=== PATIENT | female | born 1965 | race Caucasian/White ===

== ENCOUNTER 2021-04-04 12:29 | Outpatient (REF) | payer OTHER, SELFPAY ==
[2021-04-04 13:22] LABS: Hematocrit 40.1 % (37-47); Hemoglobin 13.6 g/dl (12.0-16.0); Mean Corpuscular HGB Conc 33.9 g/dl (31.0-35.0); Mean Corpuscular Hemoglobin 30.6 pg (27.0-33.0); Mean Corpuscular Volume 90.3 fL (80-98); Mean Platelet Volume 12.3 fL (9.4-12.3); Platelet Count 231 X10*3/uL (160-400); Red Blood Count 4.44 X10*6/uL (4.20-5.50); Red Cell Distribution Width 12.2 % (11.0-16.0); White Blood Count 5.7 X10*3/uL (4.8-10.8)
[2021-04-04 13:43] LABS: Estimated Average Glucose 114 mg/dL; Hemoglobin A1c % 5.6 %
[2021-04-04 14:10] LABS: Creatinine Urine 29.92 mg/dL; Microalbumin Urine < 5.0 mg/L
[2021-04-04 14:12] LABS: Alanine Aminotransferase 14 U/L (0-31); Albumin Level 4.2 g/dL (3.5-5.0); Alkaline Phosphatase 75 U/L (39-117); Anion Gap 13 (12-20); Aspartate Amino Transferase 15 U/L (5-31); Bilirubin Total 0.2 mg/dL (0.0-1.0); Blood Urea Nitrogen 14 mg/dL (9-16); Calcium 9.3 mg/dL (8.4-10.2); Carbon Dioxide 27 mmol/L (22-29); Chloride 106 mmol/L (96-108); Cholesterol 232 mg/dL; Estimated Glomerular Filt Rate > 60; Glucose Fasting 110 mg/dL (60-99); HDL Cholesterol 38 mg/dL; LDL Cholesterol Calculated 125 mg/dl; Potassium 4.4 mmol/L (3.3-5.1); Sodium 142 mmol/L (135-145); Total Protein 7.3 g/dL (6.5-8.0); Triglycerides 346 mg/dL
[2021-04-04 14:32] LABS: TSH reflex Free T4 1.16 uIU/mL (0.32-4.0)
== END 2021-04-04 12:30 | disposition home or self-care (01) ==
LOC: HO.LAB 12:29
PROVIDERS: Visit Provider Internal Medicine
DX: Z00.00 Encounter for general adult medical examination without abnormal findings (principal); E78.5 Hyperlipidemia, unspecified; M19.90 Unspecified osteoarthritis, unspecified site; R73.9 Hyperglycemia, unspecified
CPT/HCPCS: 36415; 80053; 80061; 82043; 83036; 84443; 85027

== ENCOUNTER 2022-09-04 15:34 | Emergency (ER) | payer OTHER, SELFPAY ==
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
[2022-09-04 16:34] VITALS: BP 192/83; PULSE 105; RESP 20; TEMP 36.9; O2SAT 100; BMI 35.4
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
[2022-09-04 19:05] VITALS: BP 198/80; PULSE 91; RESP 16; TEMP 36.8; O2SAT 99
[2022-09-04] MEDS: Ketorolac Tromethamine 30 MG/ML VIAL IM (19:34)
[2022-09-04] MEDS: Lidocaine 4 % Patch ADH..PATCH 1 PATCH TRANSDERMA (19:36)
[2022-09-04 19:55] VITALS: BP 189/89; PULSE 84; RESP 16; O2SAT 98
--- NOTE | 2022-09-04 20:01 | PC.NURSE ---
BP reassessed and found to be lower than previous readings but still elevated. Pt denied any dizziness or headache at this time. Pt reported decreased right flank pain. Provider made aware of pt condition. Plan to discharge home with pain meds. Pt advised to monitor BP this week at home.
== END 2022-09-04 20:12 | disposition home or self-care (01) ==
PROVIDERS: Emergency Provider Internal Medicine; PCP Internal Medicine
DX: S20.211A Contusion of right front wall of thorax, initial encounter (principal); V43.52XA Car driver injured in collision with other type car in traffic accident, initial encounter; I10 Essential (primary) hypertension; R00.0 Tachycardia, unspecified; Y93.89 Activity, other specified; Y92.414 Local residential or business street as the place of occurrence of the external cause; Y99.9 Unspecified external cause status
CPT/HCPCS: 71101; 96372; 99284; J1885

== ENCOUNTER 2022-09-12 11:28 | Outpatient (REF) | payer OTHER, SELFPAY ==
[2022-09-12 13:50] LABS: Appearance Urine Clear; Color Urine Dark Yellow; Glucose Urine UA Negative (Negative); Leukocyte Esterase Urine Small (1+) (Negative); Nitrite Urine Negative (Negative); Specific Gravity - Urine 1.025 (1.005-1.025); UMIC TRIGGER UA YES; Urine Blood Negative (Negative); Urine Ketones Negative (Negative); Urine Protein Negative (Neg-Trace)
[2022-09-12 13:58] LABS: Bacteria Urine None Seen (None Seen); Hyaline Casts Urine 0-2 /LPF (0-2); RBC Urine 0-2 /HPF (0-2); Squamous Epithelial Cell Urine 0-2 /HPF (0-2); WBC Urine 0-5 /HPF (0-5)
== END 2022-09-12 11:29 | disposition home or self-care (01) ==
LOC: HO.HMGCLDS 11:28
PROVIDERS: PCP Internal Medicine; Visit Provider Internal Medicine
DX: Z00.00 Encounter for general adult medical examination without abnormal findings (principal)
CPT/HCPCS: 81001

== ENCOUNTER 2023-05-11 13:26 | Outpatient (AMB) | payer OTHER, SELFPAY ==
--- NOTE | 2023-05-11 13:55 | A.OFFPC_ITS ---
Vital Signs 05/11/23 13:56 Height 5 ft 3 in Weight 200 lb BMI 35.4 BP 130/80 Blood Pressure Location Rt brachial Position Sitting Pulse 89 Pulse Source Pulse Oximeter Pulse Oximetry (%) 100 Oxygen Delivery Method Room Air Intake Visit Reasons: Follow up Intake Note: pt is here for a follow up Allergies amoxicillin Allergy (Unknown, Verified 05/11/23 13:57) yeast infection Tobacco use date assessed: 05/11/23 HPI Follow up HPI Details Pt c/o flashing lights in L eye on and off for 1 month. Pt denies KUHN, change in vision, nausea vomiting, eye pain. Pt lost her job yesterday due to company changes. She follows low cholesterol diet for hyperlipid. [facility] Medical History Mammogram normal Normal Pap smear Normal colonoscopy Hyperglycemia Hyperlipidemia Osteoarthritis Annual physical exam Social History Housing: House Patient Tobacco Use Status: Never used Tobacco e-Cigarette/Vaping Use: Never Used Current occupational status: employed Cognitive needs: No Hearing needs: No Vision needs: No Questionnaire Thrive Questionnaire Date Thrive assessed: 03/29/22 JOSH-7 AMB Questionnaire JOSH-7 Date JOSH - 7 assessed: 03/29/22 Source: Developed by Drs. Myles Castellano, Rosaura Awad, Jorje Barclay and colleagues, with an educational elise from [employer]. Review of Systems Const All systems reviewed & are unremarkable except as noted in HPI and below Reports no additional complaints Eyes Reports no additional complaints ENT Reports no additional complaints Card Reports no additional complaints Resp Reports no additional complaints GI Reports no additional complaints Reports no additional complaints Physical exam (Primary Care) Vital Signs: Last Vital Signs Pulse 89 05/11/23 13:56 BP 160/88 H 05/11/23 13:56 Pulse Ox 100 05/11/23 13:56 Oxygen Delivery Method Room Air 05/11/23 13:56 BMI result Body Mass Index 35.4 Tobacco/Smoking Status: Tobacco use Status Tobacco use date assessed 05/11/23 05/11/23 14:00 Patient Tobacco Use Status Never used Tobacco 05/11/23 14:00 e-Cigarette/Vaping Use Never Used 05/11/23 14:00 Thrive Assessment: Date of Thrive Assessment Date Thrive assessed 03/29/22 05/11/23 14:00 Const General: no acute distress HENMT Ears: hearing grossly normal bilaterally Mouth: Normal oral and palatal mucosa present Eyes General: appearance normal, both eyes and all related structures Visual Castle: normal visual castle by confrontation Eyelids: Yes eyelids normal Pupils: Equal, round and reactive pupils present EOM: EOMs intact bilaterally Direct Ophthalmoscopy: no papilledema and fundi normal bilaterally Resp Effort & Inspection: normal respiratory effort Auscultation: clear to auscultation bilaterally Cardio Rhythm: regular rhythm Heart sounds: S1 normal heart sound present and S2 normal heart sound present GI Inspection: Yes normal to inspection Palpation (GI): Soft to palpation Percussion: Yes normal to percussion Neuro Cranial nerves: Yes Equal, round and reactive pupils present Assessment and Plan Assessment & Plan (1) Hyperlipidemia: Code(s): E78.5 - Hyperlipidemia, unspecified Plan: cont low cholesterol diet (2) Osteoarthritis: Comment: knees Code(s): M19.90 - Unspecified osteoarthritis, unspecified site (3) Vision changes: Code(s): H53.9 - Unspecified visual disturbance Plan: 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 Coding Level of Care Code Est Pt Level 3 (36797) Diagnoses Hyperlipidemia E78.5 Osteoarthritis M19.90 Vision changes H53.9 Elevated blood pressure reading R03.0
[2023-05-11 13:56] VITALS: BP 130/80; PULSE 89; O2SAT 100; BMI 35.4
== END 2023-05-11 15:43 | disposition home or self-care (01) ==
PROVIDERS: PCP Internal Medicine; Visit Provider Internal Medicine
DX: E78.5 Hyperlipidemia, unspecified (principal); M19.90 Unspecified osteoarthritis, unspecified site; H53.9 Unspecified visual disturbance; R03.0 Elevated blood-pressure reading, without diagnosis of hypertension
CPT/HCPCS: 99213

== ENCOUNTER 2023-06-18 12:45 | Outpatient (AMB) | payer BC, SELFPAY ==
[2023-06-18 12:47] VITALS: BP 126/78; PULSE 100; TEMP 36.7; O2SAT 96; BMI 36.7
--- NOTE | 2023-06-18 12:47 | A.OFFPC_ITS ---
Vital Signs 06/18/23 12:47 Height 5 ft 3 in Weight 207 lb BMI 36.7 BP 126/78 Blood Pressure Location Lt brachial Position Sitting Pulse 100 Pulse Source Pulse Oximeter Temp 98.1 F Temp Source Oral Pulse Oximetry (%) 96 Oxygen Delivery Method Room Air Intake Visit Reasons: congestion,sore throat, discharge from eye Intake Note: Pt is here today for a sick visit. Pt c/o congestion, cough, sore throat and discharge from both eyes for a week now. Allergies amoxicillin Allergy (Unknown, Verified 06/18/23 12:47) yeast infection Tobacco use date assessed: 06/18/23 Dental Screening Dental Screen Date: 06/18/23 Did you have a dental visit in the last 12 months?: Yes Did you have a dental problem in the last 6 months where you did not have access to dental care?: No Was dental information given to patient?: Patient has dentist HPI congestion,sore throat, discharge from eye HPI Details Pt c/o KUHN, cough, sore throat, congestion, chills, fever for 1 week. [facility] Medical History Mammogram normal Normal Pap smear Normal colonoscopy Hyperglycemia Hyperlipidemia Osteoarthritis Annual physical exam Social History Housing: House Patient Tobacco Use Status: Never used Tobacco e-Cigarette/Vaping Use: Never Used Current occupational status: employed Cognitive needs: No Hearing needs: No Vision needs: No Questionnaire PHQ-9 Over the last 2 weeks, how often have you been bothered by any of the following problems? 1. Little interest or pleasure in doing things: not at all 2. Feeling down, depressed, or hopeless: not at all 3. Trouble falling or staying asleep, or sleeping too much: not at all 4. Feeling tired or having little energy: not at all 5. Poor appetite or overeating: not at all 6. Feeling bad about yourself - or that you are a failure or have let yourself or your family down: not at all 7. Trouble concentrating on things, such as reading the newspaper or watching television: not at all 8. Moving or speaking so slowly that other people could have noticed. Or the opposite - being so fidgety or restless that you have been moving around a lot more than usual: not at all 9. Thoughts that you would be better off or of hurting yourself in some way: not at all Total score: 0 Depression Screening Interpretation: Negative Depression Screening Done: Yes Source: Developed by Drs. Myles Castellano, Rosaura Awad, Jorje euceda nd colleagues, with an educational elise from [employer]. Thrive Questionnaire Date Thrive assessed: 06/18/23 I am a: Patient What is your living situation today?: I have a steady place to live Within the past 12 months, did the food you bought not last and you didn't have the money to get more?: Never true Within the past 12 months, did you worry whether your food would run out before you got money to buy more?: Never true Do you have trouble paying for medicines?: No Do you have trouble getting transportation to medical appointments?: No Do you have trouble paying your heating and electricity bill?: No Do you have trouble taking care of your child, family member or friend?: No Do you have trouble with day-to-day activities such as bathing, preparing meals, shopping, managing finances, etc.?: No Are you currently unemployed and looking for a job?: No Are you interested in more education?: No Please select the resources that you would like help with: None JOSH-7 AMB Questionnaire JOSH-7 Date JOSH - 7 assessed: 06/18/23 Feeling nervous, anxious, or on edge: 0 = Not at all Not being able to stop or control worryin = Not at all Worrying too much about different things: 0 = Not at all Trouble relaxin = Not at all Being so restless that it is hard to sit still: 0 = Not at all Becoming easily annoyed or irritable: 0 = Not at all Feeling afraid as if something awful might happen: 0 = Not at all Total JOSH-7 score (0-4 normal; 5-9 mild; 10-14 moderate; 15-21 severe): 0 Source: Developed by Drs. Myles Castellano, Jorje Pepper nd colleagues, with an educational elise from [employer]. Review of Systems Const All systems reviewed & are unremarkable except as noted in HPI and below Reports no additional complaints Eyes Reports no additional complaints ENT Reports no additional complaints Card Reports no additional complaints Resp Reports no additional complaints Physical exam (Primary Care) Vital Signs: Last Vital Signs Temp 98.1 F 06/18/23 12:47 Pulse 100 06/18/23 12:47 BP 126/78 06/18/23 12:47 Pulse Ox 96 06/18/23 12:47 Oxygen Delivery Method Room Air 06/18/23 12:47 BMI result Body Mass Index 36.7 Tobacco/Smoking Status: Tobacco use Status Tobacco use date assessed 06/18/23 06/18/23 12:48 Patient Tobacco Use Status Never used Tobacco 06/18/23 12:48 e-Cigarette/Vaping Use Never Used 06/18/23 12:48 PHQ-9: PHQ-9 Score PHQ-9: Total score 0 06/18/23 13:18 Depression Screening Interpretation: Negative Thrive Assessment: Date of Thrive Assessment Date Thrive assessed 06/18/23 06/18/23 12:48 Const General: no acute distress HENMT Face and sinus: Yes normal facial exam Mouth: Normal oral and palatal mucosa present Throat: Yes posterior oropharynx normal Neck Neck: Yes no lymphadenopathy and Yes supple Resp Effort & Inspection: normal respiratory effort Auscultation: clear to auscultation bilaterally Cardio Rhythm: regular rhythm Heart sounds: S1 normal heart sound present and S2 normal heart sound present Assessment and Plan Assessment & Plan (1) URI (upper respiratory infection): Code(s): J06.9 - Acute upper respiratory infection, unspecified Plan: SUPPORTIVE CARE DISCUSSED WITH THE PATIENT Coding Level of Care Code Est Pt Level 3 (91746) Diagnoses URI (upper respiratory infection) J06.9
== END 2023-06-18 13:51 | disposition home or self-care (01) ==
PROVIDERS: PCP Internal Medicine; Visit Provider Internal Medicine
DX: J06.9 Acute upper respiratory infection, unspecified (principal)
CPT/HCPCS: 99213

== ENCOUNTER 2023-07-09 15:50 | Outpatient (REF) | payer BC, SELFPAY ==
--- NOTE | ~2023-07-09 | XR_ITS ---
EXAMINATION: XR RIBS, LEFT CLINICAL INFORMATION: Pleurodynia COMPARISON: Chest radiograph from 09/04/2022 TECHNIQUE: AP chest and 3 views of left rib cage FINDINGS: There is low lung volume bilaterally with atelectasis at the left lung base. There is no pleural effusion or evidence of rib fractures. XR/XR ribs LT min 3V w CXR1V IMPRESSION: Low lung colon with left atelectasis.
== END 2023-07-09 15:51 | disposition home or self-care (01) ==
LOC: HO.XRAY 15:50
PROVIDERS: PCP Internal Medicine; Visit Provider Internal Medicine
DX: R07.81 Pleurodynia (principal)
CPT/HCPCS: 71101

== ENCOUNTER 2023-09-25 14:21 | Outpatient (AMB) | payer BC, SELFPAY ==
[2023-09-25 14:34] VITALS: BP 136/74; PULSE 110; O2SAT 98; BMI 36.1
--- NOTE | 2023-09-25 14:34 | MHC.PC.OV ---
Vital Signs 09/25/23 14:34 Height 5 ft 3 in Weight 204 lb BMI 36.1 BP 136/74 Blood Pressure Location Lt brachial Position Sitting Pulse 110 H Pulse Source Pulse Oximeter Pulse Oximetry (%) 98 Oxygen Delivery Method Room Air Intake Visit Reasons: Cough, chills Intake Note: Pt is here today for a sick visit. Pt c/o cough, chills and crackling sound in her chest. Allergies amoxicillin Allergy (Unknown, Verified 09/25/23 14:42) yeast infection Medication List - Last Reconciled 09/25/23 by Marilu Ryan MD No Known Home Meds Tobacco use date assessed: 09/25/23 Dental Screening Dental Screen Date: 09/25/23 Did you have a dental visit in the last 12 months?: Yes Did you have a dental problem in the last 6 months where you did not have access to dental care?: No Was dental information given to patient?: Patient has dentist HPI Cough, chills HPI Details Pt c/o dry cough, chills, body aches for 2 days. She denies shortness or breath pleurisy sore throat nasal congestion or GI complaints. [facility]END[facility] S[facility] TO [facility] Medical History Mammogram normal Normal Pap smear Normal colonoscopy Hyperglycemia Hyperlipidemia Osteoarthritis Annual physical exam Social History Housing: House Patient Tobacco Use Status: Never used Tobacco e-Cigarette/Vaping Use: Never Used Current occupational status: employed Cognitive needs: No Hearing needs: No Vision needs: No Questionnaire Thrive Questionnaire Date Thrive assessed: 06/18/23 AUDIT C Alcohol Use Questionnaire (AUDIT-C) 1. How often do you have a drink containing alcohol?: Never 3. How often do you have six or more drinks on one occasion?: Never Total Score: 0 JOSH-7 AMB Questionnaire JOSH-7 Date JOSH - 7 assessed: 06/18/23 Source: Developed by Drs. Myles Castellano, Rosaura Awad, Jorje Barclay and colleagues, with an educational elise from [employer]. Review of Systems Const All systems reviewed & are unremarkable except as noted in HPI and below Reports no additional complaints Eyes Reports no additional complaints ENT Reports no additional complaints Resp Reports no additional complaints GI Reports no additional complaints Reports no additional complaints Physical exam (Primary Care) Vital Signs: Last Vital Signs Pulse 110 H 09/25/23 14:34 BP 136/74 09/25/23 14:34 Pulse Ox 98 09/25/23 14:34 Oxygen Delivery Method Room Air 09/25/23 14:34 BMI result Body Mass Index 36.1 Tobacco/Smoking Status: Tobacco use Status Tobacco use date assessed 09/25/23 09/25/23 14:45 Patient Tobacco Use Status Never used Tobacco 09/25/23 14:45 e-Cigarette/Vaping Use Never Used 09/25/23 14:36 Thrive Assessment: Date of Thrive Assessment Date Thrive assessed 06/18/23 09/25/23 14:36 Const General: no acute distress HENMT Head: Yes normal to inspection Ears: hearing grossly normal bilaterally Face and sinus: Yes normal facial exam Mouth: Normal oral and palatal mucosa present Throat: Yes posterior oropharynx normal Eyes General: appearance normal, both eyes and all related structures Neck Neck: Yes no lymphadenopathy and Yes supple Resp Effort & Inspection: normal respiratory effort Auscultation: clear to auscultation bilaterally Cardio Rhythm: regular rhythm Heart sounds: S1 normal heart sound present and S2 normal heart sound present Assessment and Plan Assessment & Plan (1) URI (upper respiratory infection): Code(s): J06.9 - Acute upper respiratory infection, unspecified Plan: Check respiratory nasal swab, supportive care discussed with the patient. Orders: Orders SARS-CoV2/FLU/RSV Today R09.89 - Other specified symptoms and signs involving the circulatory and respiratory systems Referrals Cologuard Test Z12.11 - Encounter for screening for malignant neoplasm of colon, Z12.12 - Encounter for screening for malignant neoplasm of rectum Medications: New benzonatate 100 mg PO TID 30 caps 0RF Coding Level of Care Code Est Pt Level 3 (07103) Diagnoses URI (upper respiratory infection) J06.9
== END 2023-09-25 15:10 | disposition home or self-care (01) ==
PROVIDERS: PCP Internal Medicine; Visit Provider Internal Medicine
DX: J06.9 Acute upper respiratory infection, unspecified (principal)
CPT/HCPCS: 99213

== ENCOUNTER 2023-09-25 15:01 | Outpatient (REF) | payer BC, SELFPAY ==
[2023-09-25 17:59] LABS: Influenza A PCR NEGATIVE (Negative); Influenza B PCR NEGATIVE (Negative); Resp Syncy Virus RNA Qual PCR NEGATIVE (Negative); SARS COV2 PCR INHOUSE NEGATIVE (Negative)
== END 2023-09-25 15:02 | disposition home or self-care (01) ==
LOC: HO.LAB 15:01
PROVIDERS: Visit Provider Internal Medicine
DX: Z11.52 Encounter for screening for COVID-19 (principal); R09.89 Other specified symptoms and signs involving the circulatory and respiratory systems
CPT/HCPCS: 0241U

== ENCOUNTER 2024-05-01 13:25 | Outpatient (AMB) | payer BC, SELFPAY ==
--- NOTE | 2024-05-01 13:28 | MHC.PC.OV ---
Vital Signs 05/01/24 13:30 Height 5 ft 3 in Weight 200 lb BMI 35.4 BP 130/78 Blood Pressure Location Lt brachial Position Sitting Pulse 92 Pulse Source Pulse Oximeter Pulse Oximetry (%) 97 Oxygen Delivery Method Room Air Intake Visit Reasons: Follow up Intake Note: Pt is here today for a follow up visit. Allergies amoxicillin Allergy (Unknown, Verified 05/01/24 13:31) yeast infection Medication List - Last Reconciled 05/01/24 by Marilu Ryan MD No Known Home Meds Tobacco use date assessed: 05/01/24 Dental Screening Dental Screen Date: 05/01/24 Did you have a dental visit in the last 12 months?: Yes Did you have a dental problem in the last 6 months where you did not have access to dental care?: No Was dental information given to patient?: Patient has dentist HPI Follow up HPI Details Patient presents for the follow-up. She complains of bilateral ankle pain and stiffness worse when walking longer distance. She had ultrasound in [place] was found to have inflammation but blood work including rheumatoid factor sed rate uric acid and CBC were normal. Patient denies joint swelling but reports chronic lower extremity edema worse at the end of the day. [facility] Medical History (Updated 05/01/24 @ 15:05 by Marilu Ryan MD) Mammogram normal Normal Pap smear Normal colonoscopy Hyperglycemia Hyperlipidemia Osteoarthritis Annual physical exam Social History Housing: House Patient Tobacco Use Status: Never used Tobacco e-Cigarette/Vaping Use: Never Used service: No Current occupational status: employed Cognitive needs: No Hearing needs: No Vision needs: No Questionnaire PHQ-9 Over the last 2 weeks, how often have you been bothered by any of the following problems? 1. Little interest or pleasure in doing things: not at all 2. Feeling down, depressed, or hopeless: not at all 3. Trouble falling or staying asleep, or sleeping too much: not at all 4. Feeling tired or having little energy: not at all 5. Poor appetite or overeating: not at all 6. Feeling bad about yourself - or that you are a failure or have let yourself or your family down: not at all 7. Trouble concentrating on things, such as reading the newspaper or watching television: not at all 8. Moving or speaking so slowly that other people could have noticed. Or the opposite - being so fidgety or restless that you have been moving around a lot more than usual: not at all 9. Thoughts that you would be better off or of hurting yourself in some way: not at all Total score: 0 Depression Screening Interpretation: Negative Depression Screening Done: Yes 31643 - PHQ-9 Billing: Yes Source: Developed by Drs. Myles Castellano, Rosaura Awad, Jorje Barclay and colleagues, with an educational elise from [employer]. Thrive Questionnaire Date Thrive assessed: 05/01/24 I am a: Patient What is your living situation today?: I have a steady place to live Within the past 12 months, did the food you bought not last and you didn't have the money to get more?: Never true Within the past 12 months, did you worry whether your food would run out before you got money to buy more?: Never true Do you have trouble paying for medicines?: No Do you have trouble getting transportation to medical appointments?: No Do you have trouble paying your heating and electricity bill?: No Do you have trouble taking care of your child, family member or friend?: No Do you have trouble with day-to-day activities such as bathing, preparing meals, shopping, managing finances, etc.?: No Are you currently unemployed and looking for a job?: No Are you interested in more education?: No Please select the resources that you would like help with: None THRIVE Score: 0 AUDIT C Alcohol Use Questionnaire (AUDIT-C) 1. How often do you have a drink containing alcohol?: Never 3. How often do you have six or more drinks on one occasion?: Never Total Score: 0 JOSH-7 AMB Questionnaire JOSH-7 Date JOSH - 7 assessed: 05/01/24 Feeling nervous, anxious, or on edge: 0 = Not at all Not being able to stop or control worryin = Not at all Worrying too much about different things: 0 = Not at all Trouble relaxin = Not at all Being so restless that it is hard to sit still: 0 = Not at all Becoming easily annoyed or irritable: 0 = Not at all Feeling afraid as if something awful might happen: 0 = Not at all Total JOSH-7 score (0-4 normal; 5-9 mild; 10-14 moderate; 15-21 severe): 0 Source: Developed by Drs. Myles Castellano, Rosaura Awad, Jorje Barclay and colleagues, with an educational elise from [employer]. JOSH-7 Assessment Billing JOSH-7 Assessment Tool: JOSH-7 Assessment 17605 Review of Systems Const All systems reviewed & are unremarkable except as noted in HPI and below ENT Reports no additional complaints Card Reports no additional complaints Resp Reports no additional complaints GI Reports no additional complaints Reports no additional complaints Physical exam (Primary Care) Vital Signs: Last Vital Signs Pulse 92 05/01/24 13:30 BP 130/78 05/01/24 13:30 Pulse Ox 97 05/01/24 13:30 Oxygen Delivery Method Room Air 05/01/24 13:30 BMI result Body Mass Index 35.4 Tobacco/Smoking Status: Tobacco use Status Tobacco use date assessed 05/01/24 05/01/24 13:35 Patient Tobacco Use Status Never used Tobacco 05/01/24 13:28 e-Cigarette/Vaping Use Never Used 05/01/24 13:28 PHQ-9: PHQ-9 Score PHQ-9: Total score 0 05/01/24 13:35 Depression Screening Interpretation: Negative Thrive Assessment: Date of Thrive Assessment Date Thrive assessed 05/01/24 05/01/24 13:35 Const General: no acute distress HENMT Face and sinus: Yes normal facial exam Resp Effort & Inspection: normal respiratory effort Auscultation: clear to auscultation bilaterally Cardio Rhythm: regular rhythm Heart sounds: S1 normal heart sound present and S2 normal heart sound present GI Inspection: Yes normal to inspection Palpation (GI): Soft to palpation Percussion: Yes normal to percussion Auscultation: normal bowel sounds Extrem Other: NO PITTING EDEMA BILATERALLY, SLIGHTLY DECREASED RANGE OF MOTION OF BOTH ANKLES NO SOFT TISSUE SWELLING ERYTHEMA OR WARMTH Coding Level of Care Code Est Pt Level 3 (29577) Diagnoses Bilateral ankle pain M25.571; M25.572 Hyperlipidemia E78.5 Lymphedema of both lower extremities I89.0 Additional Codes JOSH-7 Assessment Billing - JOSH-7 Assessment Tool: JOSH-7 Assessment 67849 ([id number]) Assessment & Plan Assessment & Plan (1) Bilateral ankle pain: Code(s): M25.571 - Pain in right ankle and joints of right foot; M25.572 - Pain in left ankle and joints of left foot Category: Medical Plan: Referred to Podiatry (2) Hyperlipidemia: Comment: Diet controlled patient refused statins Code(s): E78.5 - Hyperlipidemia, unspecified Category: Medical Plan: Patient had blood work done in [place] with a LDL of 168. She declined taking medications we will continue low-cholesterol diet (3) Lymphedema of both lower extremities: Code(s): I89.0 - Lymphedema, not elsewhere classified Category: Medical Plan: Wearing compression knee-highs discussed with the patient Orders: Referrals Cologuard Test Z12.11 - Encounter for screening for malignant neoplasm of colon, Z12.12 - Encounter for screening for malignant neoplasm of rectum Podiatry Referral M25.571 - Pain in right ankle and joints of right foot, M25.572 - Pain in left ankle and joints of left foot
[2024-05-01 13:30] VITALS: BP 130/78; PULSE 92; O2SAT 97; BMI 35.4
== END 2024-05-01 15:05 | disposition home or self-care (01) ==
LOC: HO.HMCC 13:25
PROVIDERS: PCP Internal Medicine; Visit Provider Internal Medicine
DX: M25.571 Pain in right ankle and joints of right foot (principal); M25.572 Pain in left ankle and joints of left foot; E78.5 Hyperlipidemia, unspecified; I89.0 Lymphedema, not elsewhere classified

== ENCOUNTER → 2024-05-01 13:25 | Outpatient (BNVA) | payer BC, SELFPAY | PROVIDERS: PCP Internal Medicine; Visit Provider Internal Medicine | DX: M25.571 Pain in right ankle and joints of right foot (principal); M25.572 Pain in left ankle and joints of left foot; E78.5 Hyperlipidemia, unspecified; I89.0 Lymphedema, not elsewhere classified | CPT/HCPCS: 96127 ==

== ENCOUNTER 2024-06-05 13:03 | Outpatient (AMB) | payer BC, SELFPAY ==
--- NOTE | 2024-06-05 13:04 | MHC.PC.OV ---
Vital Signs 06/05/24 13:05 Height 5 ft 3 in Weight 200 lb BMI 35.4 BP 138/82 Blood Pressure Location Lt brachial Position Sitting Pulse 95 Pulse Source Pulse Oximeter Pulse Oximetry (%) 100 Oxygen Delivery Method Room Air Intake Visit Reasons: Annual PE Intake Note: Pt is here today for PE. Allergies amoxicillin Allergy (Unknown, Verified 06/05/24 13:08) yeast infection Medication List - Last Reconciled 06/05/24 by Marilu Ryan MD No Known Home Meds Tobacco use date assessed: 06/05/24 Dental Screening Dental Screen Date: 05/01/24 HPI Annual PE HPI Details Pt presents for PE. Pt c/o chronic neck pain and stiffness worse when turning head to the side on and off for 1 month. [facility] Medical History (Updated 06/05/24 @ 13:45 by Marilu Ryan MD) Mammogram normal Normal Pap smear Normal colonoscopy Hyperglycemia Hyperlipidemia Osteoarthritis Annual physical exam Surgical History No pertinent past surgical history Family History Father Hypertension Mother Ovarian cancer Social History Housing: House Patient Tobacco Use Status: Never used Tobacco e-Cigarette/Vaping Use: Never Used service: No Current occupational status: employed Cognitive needs: No Hearing needs: No Vision needs: No Questionnaire Thrive Questionnaire Date Thrive assessed: 05/01/24 I am a: Patient What is your living situation today?: I choose not to answer this question Within the past 12 months, did the food you bought not last and you didn't have the money to get more?: I choose not to answer this question Within the past 12 months, did you worry whether your food would run out before you got money to buy more?: I choose not to answer this question Do you have trouble paying for medicines?: I choose not to answer this question Do you have trouble getting transportation to medical appointments?: I choose not to answer this question Do you have trouble paying your heating and electricity bill?: I choose not to answer this question Do you have trouble taking care of your child, family member or friend?: I choose not to answer this question Do you have trouble with day-to-day activities such as bathing, preparing meals, shopping, managing finances, etc.?: I choose not to answer this question Are you currently unemployed and looking for a job?: I choose not to answer this question Are you interested in more education?: I choose not to answer this question Please select the resources that you would like help with: None Currently or been in a relationship where the following occur: I choose not to answer THRIVE Score: 0 AUDIT C Alcohol Use Questionnaire (AUDIT-C) 1. How often do you have a drink containing alcohol?: Never Total Score: 0 JOSH-7 AMB Questionnaire JOSH-7 Date JOSH - 7 assessed: 05/01/24 Feeling nervous, anxious, or on edge: 0 = Not at all Not being able to stop or control worryin = Not at all Worrying too much about different things: 0 = Not at all Trouble relaxin = Not at all Being so restless that it is hard to sit still: 0 = Not at all Becoming easily annoyed or irritable: 0 = Not at all Feeling afraid as if something awful might happen: 0 = Not at all Total JOSH-7 score (0-4 normal; 5-9 mild; 10-14 moderate; 15-21 severe): 0 Source: Developed by Drs. Myles Castellano, Rosaura Awad, Jorje Barclay and colleagues, with an educational elise from [employer]. Review of Systems Const All systems reviewed & are unremarkable except as noted in HPI and below Reports no additional complaints Eyes Reports no additional complaints ENT Reports no additional complaints Card Reports no additional complaints Resp Reports no additional complaints GI Reports no additional complaints Reports no additional complaints Musc Reports no additional complaints Neuro Reports no additional complaints Physical exam (Primary Care) Vital Signs: Last Vital Signs Pulse 95 06/05/24 13:05 BP 138/82 06/05/24 13:05 Pulse Ox 100 06/05/24 13:05 Oxygen Delivery Method Room Air 06/05/24 13:05 BMI result Body Mass Index 35.4 Tobacco/Smoking Status: Tobacco use Status Tobacco use date assessed 06/05/24 06/05/24 13:16 Patient Tobacco Use Status Never used Tobacco 06/05/24 13:05 e-Cigarette/Vaping Use Never Used 06/05/24 13:05 Thrive Assessment: Date of Thrive Assessment Date Thrive assessed 05/01/24 06/05/24 13:05 Currently or been in a relationship where the following occur: I choose not to answer Const General: no acute distress HENMT Head: Yes normal to inspection General nose exam: Normal external nose present Face and sinus: Yes normal facial exam Mouth: Normal oral and palatal mucosa present Throat: Yes posterior oropharynx normal Eyes General: appearance normal, both eyes and all related structures Neck Neck: Yes no lymphadenopathy and Yes supple Resp Effort & Inspection: normal respiratory effort Auscultation: clear to auscultation bilaterally Cardio Rhythm: regular rhythm Heart sounds: S1 normal heart sound present and S2 normal heart sound present GI Inspection: Yes normal to inspection Palpation (GI): Soft to palpation Percussion: Yes normal to percussion Auscultation: normal bowel sounds Coding Level of Care Code Est Pt Prev Care 40-64y(29049) Diagnoses Neck pain M54.2 Annual physical exam Z00.00 Assessment & Plan Assessment & Plan (1) Neck pain: Code(s): M54.2 - Cervicalgia Category: Medical Plan: for chronic neck pain refer to PT (2) Annual physical exam: Code(s): Z00.00 - Encounter for general adult medical examination without abnormal findings Category: Medical Plan: well balanced diet, regular exercise, weight loss discussed, blood work ,mammogram and pap done in [place]. Orders: Orders PT Evaluation and Treatment Today M54.2 - Cervicalgia
[2024-06-05 13:05] VITALS: BP 138/82; PULSE 95; O2SAT 100; BMI 35.4
--- OUTSIDE RECORDS SUMMARY | 2024-06-11 02:17 | XMS_ITS | Patient Health Record ---
Author Organization [facility] Address [address] [place] [address] Care Team Providers Care Pearl Diver Name Role Phone Marilu Ryan MD Primary Care Provider Sang Montano Unavailable [phone] Allergies Allergen (clinical drug ingredient) Drug/Non Drug Allergy documented on EMR Reaction Allergy Type Onset Date Status sulfamethoxazole / trimethoprim Bactrim Unknown Drug Allergy Active azithromycin Zithromax Unknown Drug Allergy Acti ve Reason For Referral No Information Medications Medication SIG (Take, Route, Frequency, Duration) Notes Start Date End Date Status Betamethasone Valerate 0.1 % APPLY RECTA LLY TWICE A DAY TO AFFECTED AREA External for 015 Active Social History Tobacco use other than smoking: Question Answer Notes Are you an other tobacco user? 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
== END 2024-06-05 15:34 | disposition home or self-care (01) ==
PROVIDERS: PCP Internal Medicine; Visit Provider Internal Medicine
DX: M54.2 Cervicalgia (principal); Z00.00 Encounter for general adult medical examination without abnormal findings

== ENCOUNTER → 2024-06-05 13:03 | Outpatient (BNVA) | payer BC, SELFPAY | PROVIDERS: PCP Internal Medicine; Visit Provider Internal Medicine ==

== ENCOUNTER 2024-08-15 12:48 | Outpatient (AMB) | payer BC, SELFPAY ==
[2024-08-15 12:49] VITALS: BP 135/85; PULSE 104; RESP 20; TEMP 36.5; O2SAT 100; BMI 39.0
--- NOTE | 2024-08-15 12:49 | MHC.PC.OV ---
Vital Signs 08/15/24 12:49 Height 5 ft 3 in Weight 220 lb BMI 39.0 BP 135/85 Blood Pressure Location Rt brachial Position Sitting Respiration 20 Pulse 104 H Pulse Source Pulse Oximeter Temp 97.7 F Temp Source Oral Pulse Oximetry (%) 100 Oxygen Delivery Method Room Air Intake Visit Reasons: Swelling in legs Intake Note: Pt is here today for a sick visit. Pt c/o swelling in her hands and legs. Allergies amoxicillin Allergy (Unknown, Verified 08/15/24 12:52) yeast infection Medication List - Last Reconciled 08/15/24 by Marilu Ryan MD No Known Home Meds Tobacco use date assessed: 08/15/24 Dental Screening Dental Screen Date: 08/15/24 Did you have a dental visit in the last 12 months?: Yes Did you have a dental problem in the last 6 months where you did not have access to dental care?: No Was dental information given to patient?: Patient has dentist HPI Swelling in legs HPI Details Pt presents c/o worsening bilateral lower extremities swelling for 1 week. Patient has been steady gaining weight 20 lb in the last month but states she has not been eating more than before. Patient has not been working (laid off ) and started be more physically active recently. She denies chest pain shortness or breath palpitations PND orthopnea GI or complaints. Patient had full blood work including TSH level done in [place] 4 months ago. [facility] Medical History Mammogram normal Normal Pap smear Normal colonoscopy Hyperglycemia Hyperlipidemia Osteoarthritis Annual physical exam Surgical History No pertinent past surgical history Family History Father Hypertension Mother Ovarian cancer Social History Housing: House Patient Tobacco Use Status: Never used Tobacco e-Cigarette/Vaping Use: Never Used service: No Current occupational status: employed Cognitive needs: No Hearing needs: No Vision needs: No Questionnaire PHQ-9 Over the last 2 weeks, how often have you been bothered by any of the following problems? 1. Little interest or pleasure in doing things: not at all 2. Feeling down, depressed, or hopeless: not at all 3. Trouble falling or staying asleep, or sleeping too much: not at all 4. Feeling tired or having little energy: not at all 5. Poor appetite or overeating: not at all 6. Feeling bad about yourself - or that you are a failure or have let yourself or your family down: not at all 7. Trouble concentrating on things, such as reading the newspaper or watching television: not at all 8. Moving or speaking so slowly that other people could have noticed. Or the opposite - being so fidgety or restless that you have been moving around a lot more than usual: not at all 9. Thoughts that you would be better off or of hurting yourself in some way: not at all Total score: 0 Depression Screening Interpretation: Negative Depression Screening Done: Yes 36320 - PHQ-9 Billing: Yes Source: Developed by Drs. Myles Castellano, Rosaura Awad, Jorje Barclay and colleagues, with an educational elise from [employer]. Thrive Questionnaire Date Thrive assessed: 08/15/24 I am a: Patient What is your living situation today?: I have a steady place to live Within the past 12 months, did the food you bought not last and you didn't have the money to get more?: Never true Within the past 12 months, did you worry whether your food would run out before you got money to buy more?: Never true Do you have trouble paying for medicines?: No Do you have trouble getting transportation to medical appointments?: No Do you have trouble paying your heating and electricity bill?: No Do you have trouble taking care of your child, family member or friend?: No Do you have trouble with day-to-day activities such as bathing, preparing meals, shopping, managing finances, etc.?: No Are you currently unemployed and looking for a job?: No Are you interested in more education?: No Please select the resources that you would like help with: None THRIVE Score: 0 AUDIT C Alcohol Use Questionnaire (AUDIT-C) 1. How often do you have a drink containing alcohol?: Never 3. How often do you have six or more drinks on one occasion?: Never Total Score: 0 JOSH-7 AMB Questionnaire JOSH-7 Date JOSH - 7 assessed: 08/15/24 Feeling nervous, anxious, or on edge: 0 = Not at all Not being able to stop or control worryin = Not at all Worrying too much about different things: 0 = Not at all Trouble relaxin = Not at all Being so restless that it is hard to sit still: 0 = Not at all Becoming easily annoyed or irritable: 0 = Not at all Feeling afraid as if something awful might happen: 0 = Not at all Total JOSH-7 score (0-4 normal; 5-9 mild; 10-14 moderate; 15-21 severe): 0 Source: Developed by Drs. Myles Castellano, Rosaura Awad, Jorje Barclay and colleagues, with an educational elise from [employer]. JOSH-7 Assessment Billing JOSH-7 Assessment Tool: JOSH-7 Assessment 49794 Review of Systems Const All systems reviewed & are unremarkable except as noted in HPI and below Eyes Reports no additional complaints ENT Reports no additional complaints Card Reports no additional complaints Resp Reports no additional complaints GI Reports no additional complaints Reports no additional complaints Physical exam (Primary Care) Vital Signs: Last Vital Signs Temp 97.7 F 08/15/24 12:49 Pulse 104 H 08/15/24 12:49 Resp 20 08/15/24 12:49 Pulse Ox 100 08/15/24 12:49 Oxygen Delivery Method Room Air 08/15/24 12:49 BMI result Body Mass Index 39.0 Tobacco/Smoking Status: Tobacco use Status Tobacco use date assessed 08/15/24 08/15/24 12:58 Patient Tobacco Use Status Never used Tobacco 08/15/24 12:58 e-Cigarette/Vaping Use Never Used 08/15/24 12:58 PHQ-9: PHQ-9 Score PHQ-9: Total score 0 08/15/24 13:26 Depression Screening Interpretation: Negative Thrive Assessment: Date of Thrive Assessment Date Thrive assessed 08/15/24 08/15/24 12:58 Const General: no acute distress HENMT Head: Yes normal to inspection Throat: Yes posterior oropharynx normal Neck Neck: Yes supple Resp Effort & Inspection: normal respiratory effort Auscultation: clear to auscultation bilaterally Cardio Rhythm: regular rhythm Heart sounds: S1 normal heart sound present and S2 normal heart sound present GI Inspection: Yes normal to inspection Palpation (GI): Soft to palpation Percussion: Yes normal to percussion Auscultation: normal bowel sounds Extrem Other: 2+ pitting edema both lower extremities no erythema warmth Coding Level of Care Code Est Pt Level 3 (87059) Diagnoses Edema R60.9 Overweight E66.3 Additional Codes JOSH-7 Assessment Billing - JOSH-7 Assessment Tool: JOSH-7 Assessment 43232 ([id number]) PHQ-9 - 83791 - PHQ-9 Billing: Yes ([id number]) Assessment & Plan Assessment & Plan (1) Edema: Code(s): R60.9 - Edema, unspecified Category: Medical Plan: FUROSEMIDE 20 MG DAILY WILL BE STARTED. LOW-SODIUM DIET INCREASE LOWER EXTREMITIES DISCUSSED WITH THE PATIENT. She will return for BMP BNP TSH and D-dimers. Follow-up in 2 weeks (2) Overweight: Code(s): E66.3 - Overweight Category: Medical Plan: Decreasing caloric intake increasing physical activity discussed with the patient Orders: Orders TSH reflex Free T4 1 Week R60.9 - Edema, unspecified B Type Natriuretic Peptide 1 Week R60.9 - Edema, unspecified D Dimer High Sensitivity 1 Week R60.9 - Edema, unspecified Basic Metabolic Panel Today R60.9 - Edema, unspecified Referrals Cologuard Test Z12.11 - Encounter for screening for malignant neoplasm of colon, Z12.12 - Encounter for screening for malignant neoplasm of rectum Sales Producer Nutrition Referral E66.3 - Overweight Medications: New furosemide 20 mg PO DAILY 14 tabs 0RF
--- OUTSIDE RECORDS SUMMARY | 2024-08-15 13:12 | XMS_ITS | Patient Health Record ---
Author Organization 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
== END 2024-08-15 14:56 | disposition home or self-care (01) ==
PROVIDERS: PCP Internal Medicine; Visit Provider Internal Medicine
DX: R60.9 Edema, unspecified (principal); E66.3 Overweight

== ENCOUNTER → 2024-08-15 12:48 | Outpatient (BNVA) | payer BC, SELFPAY | PROVIDERS: PCP Internal Medicine; Visit Provider Internal Medicine | DX: R60.9 Edema, unspecified (principal); E66.3 Overweight; Z68.39 Body mass index [BMI] 39.0-39.9, adult | CPT/HCPCS: 96127 ==

== ENCOUNTER 2024-08-26 10:29 | Outpatient (REF) | payer BC, SELFPAY ==
[2024-08-26 11:03] LABS: D Dimer High Sensitivity 236 NG/ML
[2024-08-26 11:06] LABS: Anion Gap 14 (12-20); Blood Urea Nitrogen 15 mg/dL (9-16); Calcium 9.2 mg/dL (8.4-10.2); Carbon Dioxide 25 mmol/L (22-29); Chloride 107 mmol/L (96-108); Estimated Glomerular Filt Rate > 60; Glucose Random 121 mg/dL (60-115); Potassium 3.6 mmol/L (3.3-5.1); Sodium 142 mmol/L (135-145)
[2024-08-26 11:07] LABS: B Type Natriuretic Peptide 39 pg/mL (<100)
[2024-08-26 11:22] LABS: TSH reflex Free T4 1.56 uIU/mL (0.32-4.0)
[2024-08-26 11:22] LABS: Appearance Urine Clear; Color Urine Yellow; Glucose Urine UA Negative (Negative); Leukocyte Esterase Urine Negative (Negative); Nitrite Urine Negative (Negative); PH 5.5 (5.0-9.0); Specific Gravity - Urine 1.015 (1.005-1.025); Urine Blood Negative (Negative); Urine Ketones Negative (Negative); Urine Protein Negative (Neg-Trace)
[2024-08-26 11:25] LABS: Bacteria Urine None Seen (None Seen); Hyaline Casts Urine 0-2 /LPF (0-2); RBC Urine 0-2 /HPF (0-2); Squamous Epithelial Cell Urine 0-2 /HPF (0-2); WBC Urine 0-5 /HPF (0-5)
--- OUTSIDE RECORDS SUMMARY | 2024-08-26 12:31 | XMS_ITS | Patient Health Record ---
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
== END 2024-08-26 10:30 | disposition home or self-care (01) ==
LOC: HO.LAB 10:29
PROVIDERS: PCP Internal Medicine; Visit Provider Internal Medicine
DX: Z00.00 Encounter for general adult medical examination without abnormal findings (principal); R60.9 Edema, unspecified
CPT/HCPCS: 36415; 80048; 81001; 83880; 84443; 85379

== ENCOUNTER 2024-08-29 11:22 | Outpatient (AMB) | payer BC, SELFPAY ==
--- NOTE | 2024-08-29 11:28 | MHC.PC.OV ---
Vital Signs 08/29/24 11:30 Height 5 ft 3 in Weight 220 lb BMI 39.0 BP 138/78 Blood Pressure Location Lt brachial Position Sitting Respiration 20 Pulse 94 Pulse Source Pulse Oximeter Temp 98.1 F Temp Source Oral Pulse Oximetry (%) 98 Oxygen Delivery Method Room Air Intake Visit Reasons: 2 weeks follow up Intake Note: Pt is wandy today for 2 weeks follow up visit. Pt states that she has swelling in her L leg. Allergies amoxicillin Allergy (Unknown, Verified 08/29/24 11:34) yeast infection Medication List - Last Reconciled 08/29/24 by Marilu Ryan MD No Known Home Meds Tobacco use date assessed: 08/29/24 Dental Screening Dental Screen Date: 08/15/24 HPI 2 weeks follow up HPI Details Pt presents for f/u of lower extremities edema. She decided not to take furosemide. Patient reports edema improved after laying down or wearing compression knee-highs. Patient complains of intermittent left knee pain and stiffness worse when starting to walk. She denies any injury or joint swelling. The patient has been recording her food intake for the last 2 weeks. She has an appointment with industrial coffee grinder next week. Patient has not been exercising. [facility] Medical History Mammogram normal Normal Pap smear Normal colonoscopy Hyperglycemia Hyperlipidemia Osteoarthritis Annual physical exam Surgical History No pertinent past surgical history Family History Father Hypertension Mother Ovarian cancer Social History Housing: House Patient Tobacco Use Status: Never used Tobacco e-Cigarette/Vaping Use: Never Used service: No Current occupational status: employed Cognitive needs: No Hearing needs: No Vision needs: No Questionnaire Thrive Questionnaire Date Thrive assessed: 08/15/24 JOSH-7 AMB Questionnaire JOSH-7 Date JOSH - 7 assessed: 08/15/24 Source: Developed by Drs. Myles Castellano, Rosaura Awad, Jorje Barclay and colleagues, with an educational elise from [employer]. Review of Systems Const All systems reviewed & are unremarkable except as noted in HPI and below Eyes Reports no additional complaints ENT Reports no additional complaints Card Reports no additional complaints Resp Reports no additional complaints GI Reports no additional complaints Reports no additional complaints Physical exam (Primary Care) Vital Signs: Last Vital Signs Temp 98.1 F 08/29/24 11:30 Pulse 94 08/29/24 11:30 Resp 20 08/29/24 11:30 BP 138/78 08/29/24 11:30 Pulse Ox 98 08/29/24 11:30 Oxygen Delivery Method Room Air 08/29/24 11:30 BMI result Body Mass Index 39.0 Tobacco/Smoking Status: Tobacco use Status Tobacco use date assessed 08/29/24 08/29/24 11:34 Patient Tobacco Use Status Never used Tobacco 08/29/24 11:29 e-Cigarette/Vaping Use Never Used 08/29/24 11:29 Thrive Assessment: Date of Thrive Assessment Date Thrive assessed 08/15/24 08/29/24 11:29 Const General: no acute distress HENMT Head: Yes normal to inspection Neck Neck: Yes supple Resp Effort & Inspection: normal respiratory effort Auscultation: clear to auscultation bilaterally Cardio Rhythm: regular rhythm Heart sounds: S1 normal heart sound present and S2 normal heart sound present Extrem Other: Slightly decreased range of motion of both knees. There is no soft tissue swelling erythema or warmth of tenderness. Coding Level of Care Code Est Pt Level 3 (48059) Diagnoses Knee pain, bilateral M25.561; M25.562 Overweight E66.3 Assessment & Plan Assessment & Plan (1) Knee pain, bilateral: Code(s): M25.561 - Pain in right knee; M25.562 - Pain in left knee Category: Medical Plan: Obtain x-rays of both knees. PT was recommended but patient declined. (2) Overweight: Code(s): E66.3 - Overweight Category: Medical Plan: Decreasing caloric intake increasing physical activity discussed with the patient. she will follow-up with industrial coffee grinder Orders: Orders XR knee standing BI Today M25.561 - Pain in right knee, M25.562 - Pain in left knee Medications: Discontinued furosemide Discontinued Reason: Doctor's Order 20 mg PO DAILY 14 tabs 0RF
[2024-08-29 11:30] VITALS: BP 138/78; PULSE 94; RESP 20; TEMP 36.7; O2SAT 98; BMI 39.0
--- OUTSIDE RECORDS SUMMARY | 2024-08-29 13:31 | XMS_ITS | Patient Health Record ---
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
== END 2024-08-29 12:25 | disposition home or self-care (01) ==
PROVIDERS: PCP Internal Medicine; Visit Provider Internal Medicine
DX: M25.561 Pain in right knee (principal); M25.562 Pain in left knee; E66.3 Overweight

== ENCOUNTER 2024-08-29 11:22 | Outpatient (REF) | payer BC, SELFPAY ==
--- NOTE | ~2024-08-29 | XR_ITS ---
EXAMINATION: XR KNEE AP STANDING CLINICAL INFORMATION: M25.561 - Pain in right knee COMPARISON: None available. TECHNIQUE: AP bilateral standing view of the knees was obtained. FINDINGS: There is moderate reduction in medial compartment left knee and mild to moderate reduction in the medial compartment right knee. No visible acute fracture, dislocation or subluxation seen. No bony erosive changes. The soft tissues are normal. XR/XR knee standing BI IMPRESSION: Degenerative arthritic changes medial compartment both knees slightly greater on the left. No loose bodies, bony erosive changes or fracture. Electronically signed by: Eb Olivas MD 09/01/2024 02:01 PM STAS
== END 2024-08-29 11:23 | disposition home or self-care (01) ==
LOC: HO.HMGCX 11:22
PROVIDERS: PCP Internal Medicine; Visit Provider Internal Medicine
DX: M25.561 Pain in right knee (principal); M25.562 Pain in left knee; E66.3 Overweight
CPT/HCPCS: 73565

== ENCOUNTER → 2024-08-29 12:09 | Outpatient (BNV) | payer BC, SELFPAY | PROVIDERS: PCP Internal Medicine; Visit Provider Radiology Diagnostic Radiology | DX: M17.0 Bilateral primary osteoarthritis of knee (principal) | CPT/HCPCS: 73565 ==

== ENCOUNTER 2024-09-04 12:22 | Outpatient (AMB) | payer BC, SELFPAY ==
[2024-09-04 12:33] VITALS: BMI 41.9
--- NOTE | 2024-09-04 12:33 | A.OFFVIS_ITS ---
VS Expanded 09/04/24 12:33 09/15/24 08:43 Height 5 ft 3 in 5 ft 3 in Weight 236 lb 12.423 oz 237 lb BMI 41.9 42.0 Intake Visit Reasons: Overweight Allergies amoxicillin Allergy (Unknown, Verified 08/29/24 11:34) yeast infection Medication List - Last Reconciled 09/15/[address], LDN furosemide 20 mg PO DAILY multivitamin 1 tab PO DAILY Nutrition Presentation Details: Pt presents for MNT for Obesity. Food frequency: fish: 0-1x/wk beef/pork: 1x/day fruits 4+ starches:> 20 /d pastries and similar 0-1/d fried foods 0-3x/wk fluid: water/juice/milk > 16 oz/d physical activity: ADL etoh/ smoking - none takes mvi BS Monitoring Most Recent Diabetes Results: Creatinine 0.67 mg/dL (0.5-1.4) 08/26/24 Blood Urea Nitrogen 15 mg/dL (9-16) 08/26/24 Sodium 142 mmol/L (135-145) 08/26/24 Potassium 3.6 mmol/L (3.3-5.1) 08/26/24 Chloride 107 mmol/L (96-108) 08/26/24 Carbon Dioxide 25 mmol/L (22-29) 08/26/24 Calcium 9.2 mg/dL (8.4-10.2) 08/26/24 RPV-Snhpnxr-Fe.Jeor Equation Height: 5 ft 3 in Weight: 237 lb Resting Metabolic Rate: 1617.86 Calculated Activity Level: Sedentary Calories Needed to Maintain Weight: 1941.43 Diagnosis Nutrition problem #1: overweight/obesity As related to (etiology) #1: diagnosis As evidenced by (sign/symptom) #1: high BMI (42 on 09/23) [facility] Medical History Mammogram normal Normal Pap smear Normal colonoscopy Hyperglycemia Hyperlipidemia Osteoarthritis Annual physical exam Surgical History No pertinent past surgical history Family History Father Hypertension Mother Ovarian cancer Social History Housing: House Patient Tobacco Use Status: Never used Tobacco e-Cigarette/Vaping Use: Never Used service: No Current occupational status: employed Cognitive needs: No Hearing needs: No Vision needs: No Assessment & Plan Assessment & Plan (1) Obesity, morbid, BMI 40.0-49.9: Code(s): E66.01 - Morbid (severe) obesity due to excess calories Category: Medical Plan: Wt: 108 Kg (08/2024 ) Est kcal needs as per MSJ: 1900 (40% carb, 30% protein/fat) Est fluid needs as per 25-30 ml/d: 3300 Est prot per day as per 1 g/kg bw: 108 Recommend fiber intake : 8-10 g per day and gradually increase to 25-28 g per day for women and 35-38 g for men or as tolerated Recommend sodium intake per day: less than 2000 mg Educated patient on: ( R = reviewed V = verbalizes understanding N/R = needs review N/A = not applicable * Food sources of carbohydrate, adequate serving sizes and its role in various health conditions: R * Differences between complex carbohydrates a simple carbohydrates, role of fiber in diet: R * Lean protein sources of foods: R V NR * Differences between types of fats and role in diet (mono on saturated fat fatty acids, saturated fatty acids, trans fats): R * Food sources of sodium in salt and healthy modifications for heart health in kidney health: R V R/V * Vitamins and minerals: R V N/R * Healthy plate method concept: R * Physical activity: Benefits a precaution: R V N/R * Patient Instructions: Practice mindful eating Work on reduction of sugars, total carbs to less than 45 g at meal and snack 0- 15 g Have water with meals an in between , 8-10c/d Coding Level of Care Code Nutr Indiv Intake (74555) Diagnoses Obesity, morbid, BMI 40.0-49.9 E66.01 Time Spent (min) 30
--- OUTSIDE RECORDS SUMMARY | 2024-09-04 14:52 | XMS_ITS | Patient Health Record ---
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
[2024-09-15 08:43] VITALS: BMI 42.0
== END 2024-09-04 13:22 | disposition home or self-care (01) ==
PROVIDERS: PCP Internal Medicine; Visit Provider Dietitian, Registered
DX: E66.01 Morbid (severe) obesity due to excess calories (principal)

== ENCOUNTER → 2024-09-04 12:22 | Outpatient (BNVA) | payer BC, SELFPAY | PROVIDERS: PCP Internal Medicine; Visit Provider Dietitian, Registered | DX: E66.01 Morbid (severe) obesity due to excess calories (principal); Z68.41 Body mass index [BMI] 40.0-44.9, adult; Z71.3 Dietary counseling and surveillance | CPT/HCPCS: 97802 ==

== ENCOUNTER 2024-10-01 10:46 | Outpatient (AMB) | payer BC, SELFPAY ==
--- NOTE | 2024-10-01 11:00 | A.OFFVIS_ITS ---
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 She describes her pains as sharp in nature. Her pains have gotten worse over the last few years in spite of continued non operative treatments. She has failed the last 3 months of conservative treatment which has included a home exercise program, physical therapy exercises, Tylenol and anti-inflammatory medicines. She has had cortisone injections given into her left shoulder in the past which gave her no relief. She wishes to hold off on surgery for as long as possible. Allergies amoxicillin Allergy (Unknown, Verified 10/01/24 11:02) yeast infection [facility] Medical History Mammogram normal Normal Pap smear Normal colonoscopy Hyperglycemia Hyperlipidemia Osteoarthritis Annual physical exam Surgical History No pertinent past surgical history Family History Father Hypertension Mother Ovarian cancer Social History (Updated 10/01/24 @ 11:02 by Deb Levi) Housing: House Patient Tobacco Use Status: Never used Tobacco e-Cigarette/Vaping Use: Never Used service: No Current occupational status: unemployed Cognitive needs: No Hearing needs: No Vision needs: No Physical Exam Vital Signs: BMI result Body Mass Index 42.0 Const Other: Well-nourished well-developed very friendly female awake alert and oriented x3 in no acute distress Extrem Other: Bilateral lower extremity examination shows good capillary refill, no skin lesions noted, normal sensation light touch Bilateral knee examination shows minimal effusions, palpable crepitus with range of motion, pain with range of motion, no instability Results Reviewed Results Reviewed: X-rays of the patient's left knee show moderate to severe joint space narrowing, subchondral sclerosis, no acute bony abnormalities X-rays of the patient's right knee show moderate joint space narrowing, subchondral sclerosis, no acute bony abnormalities Assessment & Plan Assessment & Plan (1) Osteoarthritis of left knee: Code(s): M17.12 - Unilateral primary osteoarthritis, left knee Category: Medical (2) Osteoarthritis of right knee: Code(s): M17.11 - Unilateral primary osteoarthritis, right knee Category: Medical Plan Ms. Kiran presents with progressively worsening bilateral knee pains due to osteoarthritis. I had a lengthy discussion with the patient regarding the treatment options. She wishes to hold off on total knee replacement surgery for as long as possible. I agree with this plan. I will see whether or not the patient's insurance company will cover a viscosupplementation injection, such as Durolane, for both of her knees. I will see her back once the injections are available. Feel free to contact me at any time should questions regarding her orthopedic management arise. Thank you very much for asking me to see this very friendly patient. I spent 20 minutes in reviewing the patient's records and imaging studies, seeing the patient and documenting in the medical record. Coding Level of Care Code New Pt Level 3 (22415) Complex EM visit Add On G2211 Diagnoses Osteoarthritis of left knee M17.12 Osteoarthritis of right knee M17.11
[2024-10-01 11:03] VITALS: BMI 42.0
--- OUTSIDE RECORDS SUMMARY | 2024-10-01 12:53 | XMS_ITS | Patient Health Record ---
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
== END 2024-10-01 11:15 | disposition home or self-care (01) ==
LOC: HO.HOS 10:46
PROVIDERS: PCP Internal Medicine; Visit Provider Orthopaedic Surgery
DX: M17.0 Bilateral primary osteoarthritis of knee (principal)
CPT/HCPCS: 99203

== ENCOUNTER → 2024-10-01 10:46 | Outpatient (BNVA) | payer BC, SELFPAY | PROVIDERS: PCP Internal Medicine; Visit Provider Orthopaedic Surgery ==

== ENCOUNTER 2024-10-02 13:29 | Outpatient (AMB) | payer BC, SELFPAY ==
[2024-10-02 13:31] VITALS: BMI 42.0
--- NOTE | 2024-10-02 13:31 | A.OFFVIS_ITS ---
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 STates that hands sometimes get swollen with some Left UE swelling. Swelling in the legs may have started even longer ago. 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 Complaints include pain over varicosities, swelling of lower extremities, cramping, fatigue, and heaviness of the lower extremities. 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 It is noted more so in right leg. She does complain of bilateral knee and ankle discomfort as well Patient denies any previous venous surgery or injections. Patient denies any history of DVT/ PE. - she does report an aunt with a prior history of blood clots Patient denies any history of phlebitis. Trial of compression includes - [id number] They now present for vascular evaluation regarding their varicose veins. [facility] Medical History Mammogram normal Normal Pap smear Normal colonoscopy Hyperglycemia Hyperlipidemia Osteoarthritis Annual physical exam Surgical History No pertinent past surgical history Family History Father Hypertension Mother Ovarian cancer Social History Housing: House Patient Tobacco Use Status: Never used Tobacco e-Cigarette/Vaping Use: Never Used service: No Current occupational status: unemployed Cognitive needs: No Hearing needs: No Vision needs: No Review of Systems Const Reports as per HPI ENT Reports no additional complaints Card Denies chest pain, Denies chest pain at rest and Denies chest pain with activity Resp Denies chest congestion and Denies cough GI Reports no additional complaints Musc Details: pain over varicosities, aching of lower extremities, swelling, cramping, heaviness and tiredness, itching Denies abnormal gait Skin/Breast Reports pruritus and Denies wounds Neuro Reports no additional complaints and Denies abnormal gait Psych Denies no additional complaints Physical Exam Vital Signs: BMI result Body Mass Index 42.0 Const General: cooperative, healthy appearing and comfortable Orientation/consciousness: oriented to person, oriented to place and oriented to time Neck Carotids: no bruits Chest Chest palpation & inspection: normal inspection of the chest and normal palpation of entire chest wall Resp Effort & Inspection: normal respiratory effort and able to speak in complete sentences Cardio Rate: regular rate Heart sounds: S1 normal heart sound present and S2 normal heart sound present Peripheral pulses: Peripheral pulses 2+ throughout GI Inspection: Yes normal to inspection Skin Other: +2 edema, large rope-like varicosities greater than 4 mm CEAP Classification C4 - skin color changes Ep - Etiology Primary As - superficial veins P - reflux General skin exam: dry skin Neuro General: oriented to person, oriented to place and oriented to time Extrem Right lower extremity: full ROM, normal capillary refill and edema Left lower extremity: full ROM, normal capillary refill and edema Psych Mental Status: mental status grossly normal Assessment & Plan Assessment & Plan (1) Varicose veins of right lower extremity with inflammation: Code(s): I83.11 - Varicose veins of right lower extremity with inflammation Category: Medical Plan: In short, the patient has evidence of venous insufficiency. I have discussed the pathophysiology with the patient. In addition I have provided informational material regarding venous disease to the patient. We have discussed conservative measures including compression, elevation, and exercise. I have also provided a handout regarding appropriate use of compression stockings and where to purchase good compression stockings as well. I have taken the liberty of ordering venous insufficiency testing with the patient. They will follow up with me after testing. The patient had an opportunity to ask questions regarding the treatment plan. All questions were answered. Imaging studies, laboratory studies and physical exam results were discussed and reviewed in detail. No major barriers to unde rstanding were identified. The patient expressed understanding and agreement with the above treatment plan. The patient is aware they should contact our office by phone for worsening of the current condition or the appearance of new symptoms. Thank you for allowing me to participate in the vascular care of this patient. If you have any questions or concerns regarding the treatment for the above condition please do not hesitate to contact me. The office telephone contact is [phone]. This note is constructed using voice recognition software. While every effort has been made to ensure accuracy, infantry weapons crewmember errors may have been included. Thank you for allowing me to participate in the care of your patient. Yours sincerely, Damián Chau MD, FACS, R.P.V.I. Plan Patient was informed and verbally consented to the use of an ambient scribe for clinic note documentation during this visit. Orders: Orders US venous duplex LE BI 1 Week I83.11 - Varicose veins of right lower extremity with inflammation Patient Instructions: - Undergo the venous ultrasound as scheduled. - Use compression stockings and elevate legs to reduce swelling. - Follow up with a towel cabinet repairer for evaluation of suspected arthritis. - Return for follow-up to discuss ultrasound results. Coding Level of Care Code New Pt Level 4 (29030) Diagnoses Varicose veins of right lower extremity with inflammation I83.11
== END 2024-10-02 14:04 | disposition home or self-care (01) ==
LOC: HO.HVS 13:30
PROVIDERS: PCP Internal Medicine; Visit Provider Surgery Vascular Surgery
DX: I83.11 Varicose veins of right lower extremity with inflammation (principal)
CPT/HCPCS: 99204

== ENCOUNTER 2024-10-15 16:07 | Outpatient (REF) | payer BC, SELFPAY ==
[2024-10-15 17:13] LABS: Appearance Urine Cloudy; Color Urine Yellow; Glucose Urine UA Negative (Negative); Leukocyte Esterase Urine Small (1+) (Negative); Nitrite Urine Negative (Negative); PH 5.5 (5.0-9.0); Specific Gravity - Urine 1.025 (1.005-1.025); UMIC TRIGGER UA YES; Urine Blood Negative (Negative); Urine Ketones Trace mg/dL (Negative); Urine Protein Negative (Neg-Trace)
[2024-10-15 17:18] LABS: Bacteria Urine None Seen (None Seen); Hyaline Casts Urine 0-2 /LPF (0-2); RBC Urine 0-2 /HPF (0-2)
--- OUTSIDE RECORDS SUMMARY | 2024-10-15 18:13 | XMS_ITS | Patient Health Record ---
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
== END 2024-10-15 16:08 | disposition home or self-care (01) ==
LOC: HO.LAB 16:07
PROVIDERS: PCP Internal Medicine; Visit Provider Internal Medicine
DX: R35.0 Frequency of micturition (principal)
CPT/HCPCS: 81001

== ENCOUNTER 2024-11-10 08:37 | Outpatient (REF) | payer BC, SELFPAY ==
--- NOTE | ~2024-11-10 | US_ITS ---
EXAMINATION: US LOWER EXTREMITY VENOUS (REFLUX EXAM), BILATERAL CLINICAL INFORMATION: Varicose veins of right lower extremity with inflammation. COMPARISON: None. TECHNIQUE: Color flow triplex imaging and compression Doppler was performed to evaluate both the deep and the superficial systems bilaterally. To evaluate the superficial system, the examination was performed in the upright position. Color-flow Doppler ultrasound and compression ultrasound were utilized. In addition, maneuvers were utilized to demonstrate reflux. FINDINGS: 1. DEEP VENOUS ULTRASOUND OF THE RIGHT LOWER EXTREMITY: Common Femoral Vein: Compressible, normal respiratory variation and augmented flow. Femoral Vein: Compressible, normal color flow and augmentation. Popliteal Vein: Compressible, normal augmentation. Deep Reflux: There is no evidence of reflux in the deep system in either the common femoral vein, superficial femoral or the popliteal vein. There is no evidence of a Palacio's cyst. 2. SUPERFICIAL ULTRASOUND WITH DOPPLER OF RIGHT LOWER EXTREMITY: GREAT SAPHENOUS VEIN: Saphenofemoral Junction: 0.6 cm; Reflux: 0 ms Proximal Thigh: 0.6 cm; Reflux: 0 ms Mid Thigh: 0.5 cm; Reflux: 2444 ms Distal Thigh: 0.5 cm; Reflux: 2900 ms At Knee: 0.3 cm; Reflux: 0 ms Proximal Calf: 0.3 cm; Reflux: 0 ms Mid Calf: 0.4 cm; Reflux: 0 ms Distal Calf: 2.3 cm; Reflux: 0 ms DUPLICATED MEDIAL GREAT SAPHENOUS VEIN: SFJ diameter is 0.6 cm. Reflux: 0 ms. Mid thigh diameter is 0.3 cm. Reflux: 0 ms. DUPLICATED LATERAL GREAT SAPHENOUS VEIN: None imaged. SMALL SAPHENOUS VEIN: Saphenopopliteal Junction: 0.3 cm; Reflux: 0 ms Proximal: 0.2 cm; Reflux: 0 ms Distal: 0.2 cm; Reflux: 0 ms VEIN OF GIACOMINI: None imaged. PERFORATORS: Midcalf, 0.2 cm. No reflux. Mid thigh, 0.2 cm, no reflux. Mid thigh, 0.2 cm, no reflux. Proximal calf, 0.2 cm, no reflux. Proximal calf 29 cm from heel, 0.4 cm, reflux = 3500 ms. Midcalf, 20 cm from heel, 0.4 cm, reflux = 1712 ms. VARICOSITIES: Mid thigh, 0.5 cm, no reflux. Distal thigh, 0.5 cm, reflux = 2664 ms. Distal thigh, 0.5 cm, reflux = 2848 ms. At knee, 0.5 cm, reflux = 1646 ms. At knee, 0.3 cm, no reflux. Proximal calf, 0.5 cm, reflux = 1364 ms. Mid calf, 0.3 cm, no reflux. Distal calf, 0.4 cm, no reflux. 3. DEEP VENOUS ULTRASOUND OF THE LEFT LOWER EXTREMITY: Common Femoral Vein: Compressible, normal respiratory variation and augmented flow. Femoral Vein: Compressible, normal color flow and augmentation. Popliteal Vein: Compressible, normal augmentation. Deep Reflux: There is no evidence of reflux in the deep system in either the common femoral vein, superficial femoral or the popliteal vein. There is no evidence of a Palacio's cyst. 4. SUPERFICIAL ULTRASOUND WITH DOPPLER OF LEFT LOWER EXTREMITY: GREAT SAPHENOUS VEIN: Saphenofemoral Junction: 0.7 cm; Reflux: 0 ms Proximal Thigh: 0.5 cm; Reflux: 0 ms Mid Thigh: 0.3 cm; Reflux: 0 ms Distal Thigh: 0.3 cm; Reflux: 0 ms At Knee: 0.3 cm; Reflux: 2492 ms Proximal Calf: 0.4 cm; Reflux: 2492 ms Mid Calf: 0.3 cm; Reflux: 3124 ms Distal Calf: 0.3 cm; Reflux: 0 ms DUPLICATED MEDIAL GREAT SAPHENOUS VEIN: None imaged. DUPLICATED LATERAL GREAT SAPHENOUS VEIN: At SFJ, 0.4 cm, no reflux. At mid thigh, 0.2 cm, no reflux. SMALL SAPHENOUS VEIN: Saphenopopliteal Junction: 0.3 cm; Reflux: 0 ms Proximal: 0.2 cm; Reflux: 0 ms Distal: 0.2 cm; Reflux: 0 ms VEIN OF GIACOMINI: Size: 0.3 Reflux: None PERFORATORS: Mid thigh, 0.2 cm, no reflux. Proximal calf, 30 cm from heel, 0.3 cm, reflux = 3016 ms. Mid calf, 0.3 cm, no reflux. VARICOSITIES: Distal thigh, 0.3 cm, no reflux. US/ venous insuf bilat IMPRESSION: RIGHT: 1. No evidence of DVT or reflux in the deep venous system. 2. There is reflux in the greater saphenous vein in the mid thigh and distal thigh. 3. There are perforators of which proximal calf perforators 29 cm from the heel, and 20 cm from the heel demonstrates significant reflux. 4. There are numerous varicosities on the right in the mid thigh, distal thigh, at the knee, in the proximal and midcalf, and in the distal calf, several with significant reflux. 5. See above for details. LEFT: 1. No evidence of DVT or reflux in the deep venous system. 2. There is reflux in the greater saphenous vein at the knee, below the knee, and in the mid calf. 3. There are 3 perforators, of which the proximal calf, 30 cm from the heel show significant reflux. 4. There is a single varicosity in the distal thigh with no reflux evident. 5. See above for details. Electronically signed by: Ovi Wesley MD 11/10/2024 11:18 AM EDT
--- OUTSIDE RECORDS SUMMARY | 2024-11-10 08:41 | XMS_ITS | Patient Health Record ---
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
== END 2024-11-10 08:38 | disposition home or self-care (01) ==
LOC: HO.US 08:37
PROVIDERS: PCP Internal Medicine; Visit Provider Surgery Vascular Surgery
DX: I83.11 Varicose veins of right lower extremity with inflammation (principal)
CPT/HCPCS: 93970

== ENCOUNTER → 2024-11-10 08:38 | Outpatient (BNV) | payer BC, SELFPAY | PROVIDERS: PCP Internal Medicine; Visit Provider Radiology Diagnostic Radiology | DX: I83.893 Varicose veins of bilateral lower extremities with other complications (principal) | CPT/HCPCS: 93970 ==

== ENCOUNTER 2024-11-18 13:13 | Outpatient (AMB) | payer BC, SELFPAY ==
[2024-11-18 13:16] VITALS: BMI 42.0
--- NOTE | 2024-11-18 13:16 | MHC.OFFVIS ---
Vital Signs 11/18/24 13:16 Height 5 ft 3 in Weight 237 lb BMI 42.0 Intake Visit Reasons: follow up [facility] 11/10/24 Intake Note: follow up [facility] 11/10/24 for bilateral LE swelling and pain. Right slightly worse than Left LE. Pt states that she was always working on her feet for 12 hour shifts. Swelling started in June 2024. 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 She notes that her veins on both sides are poorly functioning, but the right leg is causing more discomfort presently. The issue is characterized by swollen, tired, and heavy legs, which are particularly burdensome given her occupational demands. The condition has been observed over some time, though no specific duration is detailed. Upon assessment, she identifies multiple visible veins and acknowledges an ultrasound that confirms venous issues. Her symptoms exacerbate with prolonged standing and activity, with no mention of interventions or medications previously employed besides being informed about potential options such as compression stockings to improve venous return. Amidst her vascular concerns, she reports allergies to amoxicillin and seasonal issues with pollen. Her inquiry into potential medications for better circulation was addressed, highlighting the absence of pharmacological options and recommending lifestyle modifications, including walking and leg elevation, as supplementary management measures. [facility] Medical History Mammogram normal Normal Pap smear Normal colonoscopy Hyperglycemia Hyperlipidemia Osteoarthritis Annual physical exam Surgical History No pertinent past surgical history Family History Father Hypertension Mother Ovarian cancer Social History Housing: House Patient Tobacco Use Status: Never used Tobacco e-Cigarette/Vaping Use: Never Used service: No Current occupational status: unemployed Cognitive needs: No Hearing needs: No Vision needs: No Review of Systems Const Reports as per HPI ENT Reports no additional complaints Card Denies chest pain, Denies chest pain at rest and Denies chest pain with activity Resp Denies chest congestion and Denies cough GI Reports no additional complaints Musc Details: pain over varicosities, aching of lower extremities, swelling, cramping, heaviness and tiredness, itching Denies abnormal gait Skin/Breast Reports pruritus and Denies wounds Neuro Reports no additional complaints and Denies abnormal gait Psych Denies no additional complaints Physical Exam Vital Signs: BMI result Body Mass Index 42.0 Const General: cooperative, healthy appearing and comfortable Orientation/consciousness: oriented to person, oriented to place and oriented to time Neck Carotids: no bruits Chest Chest palpation & inspection: normal inspection of the chest and normal palpation of entire chest wall Resp Effort & Inspection: normal respiratory effort and able to speak in complete sentences Cardio Rate: regular rate Heart sounds: S1 normal heart sound present and S2 normal heart sound present Peripheral pulses: Peripheral pulses 2+ throughout GI Inspection: Yes normal to inspection Skin Other: +2 edema, large rope-like varicosities greater than 4 mm right greater than left CEAP Classification C4 - skin color changes Ep - Etiology Primary As - superficial veins P - reflux General skin exam: dry skin Neuro General: oriented to person, oriented to place and oriented to time Extrem Right lower extremity: full ROM, normal capillary refill and edema Left lower extremity: full ROM, normal capillary refill and edema Psych Mental Status: mental status grossly normal Results Reviewed Results Reviewed: Brief summary of venous insufficiency testing is as follows: right great saphenous vein: Positive right small saphenous vein: negative right accessory vein: none present left great saphenous vein: Positive left small saphenous vein: negative left accessory vein: none present Please note there is no evidence of any venous aneurysms or significant tortuosity Assessment & Plan Assessment & Plan (1) Varicose veins of right lower extremity with inflammation: Code(s): I83.11 - Varicose veins of right lower extremity with inflammation Category: Medical Plan: This patient has varicose veins with inflammation. They continue to be a source of discomfort for the patient. The patient has tried conservative treatment with compression, leg elevation and exercise program for over 3 months time. They have been compliant with all treatment. This has provided minimal relief for the patient. I do not anticipate this course of treatment will alter the underlying etiology. The patient has been scheduled for lower extremity venous treatment inclusive of --- right great saphenous vein Cyanoacralate ablation. Risks, benefits, and complications of this procedure has been discussed in detail with the patient including but not limited to bleeding, infection, and the development of a DVT. The patient has demonstrated a clear understanding and has consented. We will schedule the patient as soon as possible. Thank you for allowing us to participate in this patient's care. If there are any questions or concerns please do not hesitate to contact us. Coding Level of Care Code Est Pt Level 4 (82399) Diagnoses Varicose veins of right lower extremity with inflammation I83.11
--- OUTSIDE RECORDS SUMMARY | 2024-11-18 14:20 | XMS_ITS | Patient Health Record ---
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
== END 2024-11-18 13:55 | disposition home or self-care (01) ==
LOC: HO.HVS 13:14
PROVIDERS: PCP Internal Medicine; Visit Provider Surgery Vascular Surgery
DX: I83.11 Varicose veins of right lower extremity with inflammation (principal)
CPT/HCPCS: 99214

== ENCOUNTER → 2024-11-18 13:13 | Outpatient (BNVA) | payer BC, SELFPAY | PROVIDERS: PCP Internal Medicine; Visit Provider Surgery Vascular Surgery ==